=== PATIENT | male | born 1980 | race Caucasian/White ===

== ENCOUNTER 2018-01-07 22:14 | Emergency (ER) | payer MEDICAID ==
[~2018-01-07] VITALS: Ht 177.8 cm; Wt 86.2 kg
[2018-01-07 22:21] VITALS: BP_SYST 136
[2018-01-08] MEDS ORDERED: LORazepam 1 MG TABLET PO ONE
[2018-01-08 00:29] VITALS: BP_SYST 129
== END 2018-01-08 00:29 | disposition home or self-care (01) ==
LOC: SED 22:14
DX: R42 Dizziness and giddiness (principal); Z76.0 Encounter for issue of repeat prescription; Z88.8 Allergy status to other drugs, medicaments and biological substances
CPT/HCPCS: 99283

== ENCOUNTER 2018-04-07 20:45 | Emergency (ER) | payer MEDICAID ==
[~2018-04-07] VITALS: Ht 177.8 cm; Wt 90.7 kg
[2018-04-07 20:51] VITALS: BP_SYST 140
[2018-04-07 21:20] VITALS: BP_SYST 140
== END 2018-04-07 21:20 | disposition home or self-care (01) ==
LOC: SED 20:45
DX: F41.9 Anxiety disorder, unspecified (principal); F32.9 Major depressive disorder, single episode, unspecified; J45.909 Unspecified asthma, uncomplicated; R03.0 Elevated blood-pressure reading, without diagnosis of hypertension; Z76.0 Encounter for issue of repeat prescription
CPT/HCPCS: 99283